=== PATIENT | female | born 1995 | race Caucasian/White ===

== ENCOUNTER 2019-04-18 22:08 | Emergency (ER) | payer OTHER ==
[~2019-04-18] VITALS: Ht 157.5 cm; Wt 75.3 kg
[2019-04-18 22:14] VITALS: BP 150/94
== END 2019-04-18 23:15 | disposition other institution (70) ==
LOC: ED 23:10
DX: S05.01XA Injury of conjunctiva and corneal abrasion without foreign body, right eye, initial encounter (principal); H10.403 Unspecified chronic conjunctivitis, bilateral; X58.XXXA Exposure to other specified factors, initial encounter; Y93.89 Activity, other specified; Y92.89 Other specified places as the place of occurrence of the external cause; Y99.8 Other external cause status
CPT/HCPCS: 99283